=== PATIENT | male | born 1940 | race Caucasian/White ===

== ENCOUNTER → 2016-11-15 | Outpatient (CLI) | payer OTHER ==
[~2016-11-15] MED LIST: AMLO-110 PO; ATOR-22 PO; CHOL100010 PO
[2016-11-15 10:36] LABS: BASO % 0.2 %; BASO ABS # 0.01 K/uL (0-0.2); COMPLETE YES; HEMATOCRIT 43.2 % (42-52); IG% 0.2 %; LYMPH % 24.9 %; LYMPH ABS # 1.21 K/uL (1.2-3.4); MEAN CELL VOLUME 92.9 fL (80-100); MEAN CORPUSCULAR HEMOGLOBIN 31.2 pg (25-34); MEAN CORPUSCULAR HGB CONC 33.6 g/dl (32-36); MEAN PLATELET VOLUME 10.9 fL (7.4-10.4); MONO % 5.6 %; NEUT % 68.1 %; PLATELET COUNT 201 K/uL (130-400); RED BLOOD COUNT 4.65 M/uL (4.7-6.1); WHITE BLOOD COUNT 4.85 K/uL (4.8-10.8)
[2016-11-15 11:10] LABS: BLOOD UREA NITROGEN 26 mg/dl (7-18); BUN/CREATININE RATIO 18.9 (10-20); CALCIUM 8.7 mg/dl (8.5-10.1); CARBON DIOXIDE 31 mmol/L (21-32); CHLORIDE 106 mmol/L (98-107); GLUCOSE 162 mg/dl (70-99); SODIUM 141 mmol/L (136-145)
[2016-11-15 12:10] LABS: URINE APPEARANCE CLEAR (CLEAR); URINE BILIRUBIN NEG (NEG); URINE COLOR YELLOW; URINE EPITHELIAL CELL AUTO 0-5 /lpf (0-5); URINE NITRITE NEG (NEG); URINE PH 5.5 (4.5-7.5); URINE SPECIFIC GRAVITY 1.013 (1.000-1.030); UROBILINOGEN NEG (NEG)
[2016-11-15 12:12] LABS: MANUAL MICROSCOPIC REQUIRED? NO; REVIEW REQ? NO
[2016-11-15 12:25] LABS: ESTIMATED AVERAGE GLUCOSE 146 mg/dl; HA1C FLAG Normal (Normal)
[2016-11-15 13:27] LABS: URINE PROTIEN/CREAT RATIO 0.1 (0-0.2); URINE TOTAL PROTEIN 7.4 mg/dl (0-11.9)
--- NOTE | 2016-11-21 06:08 | CODING QUERY MEDICAL NECESSITY ---
SUPPORTING DIAGNOSIS NEEDED Dr. Lora, A supporting diagnosis is required for the test/procedure performed on this patient in order for us to be reimbursed by the patient's insurance. Please provide a supporting diagnosis for the following test/procedure listed below next to the test name along with your signature. *If there is no additional diagnosis for this patient that would support the following test/procedure please document that below next to the test/procedure. Test(s)/Procedure(s) that require a supporting diagnosis: * ([id number]) B12 VITAMIN LEVEL DIAGNOSIS: DATE OF SERVICE: 11/15/16 Provider Signature: Date: Thank you James Edwards [facility] Information Management Once completed, please kindly fax back to [phone] For questions please call [phone]
== END | disposition home or self-care (01) ==
LOC: C.LAB1850 09:51
PROVIDERS: ATTEND Internal Medicine Nephrology
DX: I12.9 Hypertensive chronic kidney disease with stage 1 through stage 4 chronic kidney disease, or unspecified chronic kidney disease (principal); C61 Malignant neoplasm of prostate; I25.10 Atherosclerotic heart disease of native coronary artery without angina pectoris; N18.3 Chronic kidney disease, stage 3 (moderate); E11.29 Type 2 diabetes mellitus with other diabetic kidney complication; D12.6 Benign neoplasm of colon, unspecified; G31.84 Mild cognitive impairment of uncertain or unknown etiology; E55.9 Vitamin D deficiency, unspecified; Z86.2 Personal history of diseases of the blood and blood-forming organs and certain disorders involving the immune mechanism

== ENCOUNTER → 2017-05-23 | Outpatient (CLI) | payer OTHER ==
[2017-05-23 12:23] LABS: BASO % 0.3 %; BASO ABS # 0.03 K/uL (0-0.2); COMPLETE YES; EOS % 0.9 %; HEMATOCRIT 41.3 % (42-52); IG% 0.2 %; LYMPH % 15.5 %; LYMPH ABS # 1.36 K/uL (1.2-3.4); MEAN CELL VOLUME 93.2 fL (80-100); MEAN CORPUSCULAR HEMOGLOBIN 31.2 pg (25-34); MEAN CORPUSCULAR HGB CONC 33.4 g/dl (32-36); MEAN PLATELET VOLUME 10.9 fL (7.4-10.4); MONO % 6.2 %; NEUT % 76.9 %; PLATELET COUNT 206 K/uL (130-400); RED BLOOD COUNT 4.43 M/uL (4.7-6.1); WHITE BLOOD COUNT 8.78 K/uL (4.8-10.8)
[2017-05-23 12:45] LABS: URINE APPEARANCE CLEAR (CLEAR); URINE BILIRUBIN NEG (NEG); URINE COLOR YELLOW; URINE EPITHELIAL CELL AUTO 0-5 /lpf (0-5); URINE NITRITE NEG (NEG); URINE PROTIEN/CREAT RATIO 0.1 (0-0.2); URINE SPECIFIC GRAVITY 1.019 (1.000-1.030); URINE TOTAL PROTEIN 11.8 mg/dl (0-11.9); UROBILINOGEN NEG (NEG)
[2017-05-23 12:47] LABS: ALT/SGPT 36 U/L (12-78); AST/SGOT 18 U/L (15-37); BLOOD UREA NITROGEN 15 mg/dl (7-18); BUN/CREATININE RATIO 9.9 (10-20); CALCIUM 8.7 mg/dl (8.5-10.1); CARBON DIOXIDE 31 mmol/L (21-32); CHLORIDE 104 mmol/L (98-107); CHOLESTEROL 85 mg/dl (0-200); CREATININE 1.52 mg/dl (0.60-1.40); GLUCOSE 196 mg/dl (70-99); POTASSIUM 3.7 mmol/L (3.5-5.1); SODIUM 140 mmol/L (136-145); TRIGLYCERIDES 110 mg/dl (0-150); VERY LOW DENSITY LIPOPROT CALC 22 mg/dl
[2017-05-23 12:48] LABS: MANUAL MICROSCOPIC REQUIRED? NO; REVIEW REQ? NO
[2017-05-23 12:57] LABS: ALKALINE PHOSPHATASE 112 U/L (45-117); CHOLESTEROL/HDL RATIO 1.7; HDL CHOLESTEROL 51 mg/dl; LDL CHOLESTEROL CALCULATED 12 mg/dl; PHOSPHORUS 2.9 mg/dl (2.5-4.9); PROSTATE SPECIFIC ANTIGEN 0.035 ng/ml (0.000-4.000)
[2017-05-23 13:04] LABS: ESTIMATED AVERAGE GLUCOSE 148 mg/dl; HA1C FLAG Normal (Normal)
== END | disposition home or self-care (01) ==
LOC: C.LAB1850 11:01
PROVIDERS: ATTEND Internal Medicine Nephrology
DX: I12.9 Hypertensive chronic kidney disease with stage 1 through stage 4 chronic kidney disease, or unspecified chronic kidney disease (principal); C61 Malignant neoplasm of prostate; N18.3 Chronic kidney disease, stage 3 (moderate); E11.29 Type 2 diabetes mellitus with other diabetic kidney complication; E55.9 Vitamin D deficiency, unspecified

== ENCOUNTER → 2017-11-13 | Outpatient (CLI) | payer OTHER ==
[2017-11-13 12:07] LABS: HEMOGLOBIN 14.2 g/dL (14.0-18.0); MEAN CELL VOLUME 91.3 fL (80-100); MEAN CORPUSCULAR HEMOGLOBIN 30.9 pg (25-34); MEAN CORPUSCULAR HGB CONC 33.8 g/dl (32-36); MEAN PLATELET VOLUME 10.6 fL (7.4-10.4); PLATELET COUNT 208 K/uL (130-400); RED CELL DISTRIBUTION WIDTH CV 13.1 % (11.5-14.5); RED CELL DISTRIBUTION WIDTH SD 43.9 fL (36.4-46.3); WHITE BLOOD COUNT 5.38 K/uL (4.8-10.8)
[2017-11-13 12:32] LABS: ALBUMIN 3.8 gm/dl (3.4-5.0); ALT/SGPT 37 U/L (12-78); AST/SGOT 22 U/L (15-37); BLOOD UREA NITROGEN 20 mg/dl (7-18); CALCIUM 8.5 mg/dl (8.5-10.1); CARBON DIOXIDE 30 mmol/L (21-32); CREATININE 1.53 mg/dl (0.60-1.40); GLUCOSE 148 mg/dl (70-99); POTASSIUM 3.9 mmol/L (3.5-5.1); SODIUM 139 mmol/L (136-145)
[2017-11-13 12:37] LABS: ALKALINE PHOSPHATASE 95 U/L (45-117); TOTAL PROTEIN 7.5 gm/dl (6.4-8.2)
[2017-11-13 12:42] LABS: HEMOGLOBIN A1C 6.9 % (4.5-5.6)
== END | disposition home or self-care (01) ==
LOC: C.LAB1850 11:06
PROVIDERS: ATTEND Internal Medicine Nephrology
DX: C61 Malignant neoplasm of prostate (principal); I12.9 Hypertensive chronic kidney disease with stage 1 through stage 4 chronic kidney disease, or unspecified chronic kidney disease; N18.3 Chronic kidney disease, stage 3 (moderate); E55.9 Vitamin D deficiency, unspecified; E11.9 Type 2 diabetes mellitus without complications

== ENCOUNTER 2018-12-04 17:30 | Inpatient (IN) ==
--- NOTE | 2018-12-04 18:15 | Emergency Department Note ---
History of Present Illness General Chief complaint: Bite Stated complaint: INSECT BITE, LEFT HAND SWELLING Time Seen by Provider: 12/04/18 17:38 History of Present Illness Maximum Pain Intensity: 5 This is a 78-year-old male that presents to the emergency department via private vehicle accompanied by his with complaints of "insect bite, left hand swelling". The patient notes that this past Sunday he was cleaning a grill and he believes that he got into spiders that may have bitten him. He believes they were possibly brown recluse. He states that Sunday night he began with swelling of the left medial wrist and notes that he was seen Sunday at 7 AM at a hospital in [place]. He had blood work drawn which he notes was normal and was given Keflex. He has taken 5 doses thus far and now the redness and swelling almost is to the elbow. He has no fevers but associated chills he notes. He also has diabetes. He denies any medication allergies. He has not missed any antibiotic doses. He is concerned because of how quickly the redness is spreading. Home Medications Home Medications Medication Instructions Recorded Confirmed Type ATORVASTATIN (LIPITOR) 20 mg PO QAM #0 tab 11/15/15 12/04/18 History Amlodipine (Norvasc) 5 mg PO QAM #0 tab 11/15/15 12/04/18 History CHOLECALCIFEROL (Vitamin D) 1,000 inter.unit PO QAM #0 tab 11/15/15 12/04/18 History glimepiride 0.5 mg PO QAM 12/04/18 12/04/18 History Allergies Allergy/AdvReac Type Severity Reaction Status Date / Time No Known Drug Allergies Allergy Unknown . 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 Required: No Beliefs That Will Affect Care: None Current Living Situation: Spouse Other Information That Helps Us Care for You: No Feels Safe at Home: Yes Safety Concerns: Feels Safe At This Time Smoking Status: Never smoker Hx Alcohol Use: No Hx Substance Use: No Review of Systems A total of 10 systems reviewed and were otherwise negative Physical Exam Vital Signs Vital Signs - 24 hr 12/04/18 17:33 12/04/18 19:14 12/04/18 20:23 Temperature 36.6 C Temperature Source Oral Sepsis Recent Fever Within 48 Hours No Sepsis New/Unexplained Change in Mental Status No Sepsis Action Taken by Nursing No Action Required Pulse Rate 71 Pulse Rate [Finger] 66 60 Pulse Rhythm [Finger] Regular Regular Pulse Strength [Finger] Normal Respiratory Rate 20 16 20 Respiratory Effort / Characteristics Non-Labored Spontaneous Non-Labored Spontaneous Respiratory Depth Normal Normal Respiratory Pattern Regular Blood Pressure 172/78 H Blood Pressure [Right Arm] 148/75 H 134/74 Blood Pressure Mean 109 Blood Pressure Mean [Right Arm] 99 94 Pulse Oximetry 96 96 96 Oxygen Delivery Method Room Air Room Air Room Air VITAL SIGNS - Vital signs and nursing notes were reviewed. Hypertensive, otherwise stable. GENERAL - 78-year-old male appearing his stated age who is in no acute distress. Communicates well with provider and answers questions appropriately. SKIN -the patient's left medial wrist is erythematous diffusely extending nearly to the left elbow on the ventral aspect. There is no fluctuance. It is tender to palpation and increased warmth is noted. HEAD - NC/AT. EYES - Sclera anicteric. EARS - No deformities of external structures noted on gross examination bilaterally. NOSE - Midline and without cyanosis. No epistaxis or purulent drainage noted. MOUTH/OROPHARYNX - Without perioral cyanosis. LUNGS - Chest wall symmetric without accessory muscle use, intercostals retractions, or central cyanosis. Normal vesicular breath sounds CTA B/L. No wheezes, rales, or rhonchi appreciated. CARDIAC - RRR with S1/S2. No murmur, rubs, or gallops appreciated. EXTREMITIES - No clubbing or peripheral cyanosis. No pretibial edema present. Skin as above. Full range of motion of the right and left hand/wrist noted. +5/5 strength noted in UE/LE bilaterally. NEUROLOGIC - Cranial nerves II through XII grossly intact. PSYCH - A&Ox3 and cooperates fully with examiner. Pt is very pleasant and interacts well with examiner. Course Administered Medications Sodium Chloride (Nss 1000ml) 1,000 mls @ 80 mls/hr IV .[id number] [id number] Stop: 01/03/19 21:34 Last Admin: 12/04/18 22:12 Dose: 80 mls/hr Documented by: [id number] Discontinued Medications Ceftriaxone Sodium (Rocephin) 1,000 mg in 50 mls @ 100 mls/hr IV NOW STA Stop: 12/04/18 19:47 Last Infusion: 12/04/18 20:19 Dose: 0 mls/hr Documented by: [id number] Admin: 12/04/18 19:49 Dose: 100 mls/hr Documented by: [id number] Vancomycin HCl 1,500 mg/ (Sodium Chloride) 530 mls @ 200 mls/hr IV NOW ONE; Protocol Stop: 12/04/18 21:56 Last Infusion: 12/04/18 23:29 Dose: 0 mls/hr Documented by: [id number] Admin: 12/04/18 20:21 Dose: 200 mls/hr Documented by: [id number] Medical Decision Making Laboratory Data Result diagrams: 12/04/18 17:56 12/04/18 17:56 Lab Results 12/04/18 12/04/18 Range/Units 17:56 17:56 WBC 8.66 (4.8-10.8) K/uL RBC 4.54 L (4.7-6.1) M/uL Hgb 14.3 (14.0-18.0) g/dL Hct 41.8 L (42-52) % MCV 92.1 (80-100) fL MCH 31.5 (25-34) pg MCHC 34.2 (32-36) g/dL RDW Std Deviation 45.2 (36.4-46.3) fL RDW Coeff of Kari 13.3 (11.5-14.5) % Plt Count 191 (130-400) K/uL MPV 11.1 H (7.4-10.4) fL Immature Gran % (Auto) 0.1 % Neut % (Auto) 71.2 % Lymph % (Auto) 19.2 % [place] % (Auto) 8.4 % Eos % (Auto) 0.9 % Baso % (Auto) 0.2 % Immature Gran # (Auto) 0.01 (0.00-0.02) K/uL Neut # (Auto) 6.16 (1.4-6.5) K/uL Lymph # (Auto) 1.66 (1.2-3.4) K/uL [place] # (Auto) 0.73 H (0.11-0.59) K/uL Eos # (Auto) 0.08 (0-0.5) K/uL Baso # (Auto) 0.02 (0-0.2) K/uL Sodium 142 (136-145) mmol/L Potassium 3.9 (3.5-5.1) mmol/L Chloride 109 H (98-107) mmol/L Carbon Dioxide 28 (21-32) mmol/L Anion Gap 5.0 (3-11) BUN 25 H (7-18) mg/dl Creatinine 1.52 H (0.6-1.4) mg/dl Est Cr Clr Drug Dosing 34.3 ml/min Est GFR ( Amer) 49.8 Est GFR (Non-Af Amer) 43.0 BUN/Creatinine Ratio 16.3 (10-20) Glucose 132 H (70-99) mg/dl Calcium 9.0 (8.5-10.1) mg/dl Total Bilirubin 0.6 (0.2-1) mg/dl AST 18 (15-37) U/L ALT 27 (12-78) U/L Alkaline Phosphatase 94 (45-117) U/L Total Protein 7.7 (6.4-8.2) gm/dl Albumin 3.8 (3.4-5.0) gm/dl Globulin 3.9 (2.5-4.0) gm/dl Albumin/Globulin Ratio 1.0 (0.9-2) MDM Narrative Patient was seen and evaluated as above in room D4. Review was performed of nursing notes and vital signs. After obtaining a thorough history and physical examination the above work up was performed. He presents to us today with left forearm erythema. This is consistent with likely cellulitis. Extends from the left wrist up into the left AC region. There is lymphangitic streaking at the AC region. He is afebrile nontoxic on exam. He is already had 5 doses of Keflex. Given his age, diabetic state, has already had 5 doses of antibiotics, rapid progression of the erythema I do believe that inpatient management is warranted. CBC reveals no leukocytosis or concerning anemia. Patient does have evidence of chronic kidney disease with creatinine of 1.52. Otherwise no evidence of liver failure. It was felt that the patient should be given antibiotics it would be appropriate for the likely skin infection. I did discuss this with the hospitalist, Dr. Keith. We agreed upon Rocephin and vancomycin. I did consult with our emergency department pharmacist regarding dosing for these medications as the patient has a creatinine of 1.52 with an estimated creatinine clearance for drug dosing of 34.3. It was felt that the vancomycin loading dose could be provided at 20 to 25 mg/kg and then could be adjusted with a trough accordingly. It was also noted that a gram of Rocephin could also be provided. These were ordered. Please refer to further documentation regarding the patient's stay. Case was discussed with the attending physician. I attest that I have personally reviewed the patient medication list. I attest that I have reviewed the patient's blood pressure and it was found to be elevated at time of presentation likely secondary to his presentation. GCS: 15 In the evaluation and treatment of this patient the following differential diagnoses were entertained: Localized skin reaction, allergic reaction, cellulitis, among others. Impression & Plan Cellulitis of forearm, left Discharge Plan Visit Data *Final* Discharge Date/Time: 12/04/18 21:26 Chief Complaint: Bite Stated Complaint: INSECT BITE, LEFT HAND SWELLING ED Provider: Wilmar Cheney ED Midlevel Provider: Dereck Patel Discharge Problem: Cellulitis of forearm, left Patient Disposition: Admitted As Inpatient Condition: Good Discharge Instructions Interventions: ED Discharge Assessment Last Done: 12/04/18 21:26
[2018-12-04 18:17] LABS: Basophils # (auto) 0.02 K/uL (0-0.2); Basophils % (auto) 0.2 %; Eosinophils # (auto) 0.08 K/uL (0-0.5); Eosinophils % (auto) 0.9 %; Hematocrit (blood only) 41.8 % (42-52); Hemoglobin 14.3 g/dL (14.0-18.0); Immature Granulocytes # (auto) 0.01 K/uL (0.00-0.02); Immature Granulocytes % (auto) 0.1 %; Lymphocytes # (auto) 1.66 K/uL (1.2-3.4); Lymphocytes % (auto) 19.2 %; Mean Corpuscular Hgb Conc 34.2 g/dL (32-36); Mean Corpuscular Volume 92.1 fL (80-100); Mean Platelet Volume 11.1 fL (7.4-10.4); Monocytes # (auto) 0.73 K/uL (0.11-0.59); Monocytes % (auto) 8.4 %; Neutrophils # (auto) 6.16 K/uL (1.4-6.5); Neutrophils % (auto) 71.2 %; Platelet Count 191 K/uL (130-400); RDW Coefficient of Variation 13.3 % (11.5-14.5); RDW Standard Deviation 45.2 fL (36.4-46.3); Red Blood Count 4.54 M/uL (4.7-6.1); White Blood Count 8.66 K/uL (4.8-10.8)
[2018-12-04 18:47] LABS: Albumin Level 3.8 gm/dl (3.4-5.0); BUN Creatinine Ratio 16.3 (10-20); Bilirubin,Total 0.6 mg/dl (0.2-1); Creatinine Clr Calc Pharmacy 34.3 ml/min; Est GFR (African American) 49.8; Globulin 3.9 gm/dl (2.5-4.0); Potassium 3.9 mmol/L (3.5-5.1); Total Protein 7.7 gm/dl (6.4-8.2)
--- NOTE | 2018-12-04 18:56 | Emergency Department Note ---
ED Visit Note I did evaluate and examine this patient myself. I did guide management for the patient. I agree with the PA's assessment as discussed. Please see the PAs dictation for further details. I did independently review the blood work. Patient has been on Keflex for 5 days without any improvement and worsening of his symptoms. He is not a [facility] candidate due to involvement of his hand. The case was discussed with the hospitalist for further management. .
[2018-12-04] MEDS ORDERED: VANCOMYCIN CONSULT ACTIVE PRN ×2 (19:18→21:35)
[2018-12-04] MEDS ORDERED: cefTRIAXone SODIUM 1,000 MG/50 ML BAG IV STA (19:18)
[2018-12-04] MEDS ORDERED: VANCOMYCIN HCL 1,500 MG in SODIUM CHLORIDE 0.9% 500 ML IV ONE (19:18)
--- NOTE | 2018-12-04 20:15 | History & Physical Report ---
Date of Service December 04, 2018 Assessment & Plan (1) Cellulitis: Redness and swelling of LUE with extension despite being on PO Keflex. Uncertain if this is truly a spider bite, no obvious bite site. Patient afebrile, hemodynamically stable, non-toxic in appearance. -Admit to medical floor -Ceftriaxone -Vancomycin -Monitor area of redness for progression Present on Admission?: Yes (2) Diabetes: Well controlled at home with diet and Glimepiride. BS today 132 -CC diet as tolerated -ISS Present on Admission?: Yes (3) CKD (chronic kidney disease): BUN and Cr near baseline. Electrolytes and metabolic profile acceptable. -Monitor BUN, Cr, electrolytes and UOP -Avoid nephrotoxic medications -Renal dosing where appropriate Present on Admission?: Yes (4) VIK on CPAP: Patient reports using CPAP at home intermittently. Discussed importance of compliance with CPAP qHS -CPAP per protocol F/E/N - NSS at 80mL/hr x 1 liter, monitor electrolytes and renal function, CC diet as tolerated Ppx - Ambulation, IVF, patient low risk for DVT Code - Full Dispo - Admit to medical floor History of Present Illness Chief Complaint: cellulitis Primary Care Provider: Briana Rico PA-C Mr. Castañeda is a pleasant 78yo male with history of DM, CKD presenting with cellulitis of the LUE. Patient was visiting family in [place] on 12/02/18 and was cleaning a [employer] grill at appx 15:00. He was removing some spider webs with his bare hands and states that he saw a brown recluse spider. He does not recall getting bitten but shortly after he developed redness and swelling of the left wrist. Redness, swelling and pain worsened. Patient was seen in the ER field aide on 12/03/18 and was diagnosed with cellulitis. He was given a prescription for Keflex. Has been taking as prescribed and has completed 5 doses. Patient presents today with worsening of redness and swelling. Redness has progressed from the wrist to approximately the mid-forearm over the last 12 hours. Per ER staff, redness has progressed since arrival. He denies fevers, chills, nausea, vomiting, myalgias, malaise. No additional complaints at this time. ER Course: Vancomycin, Ceftriaxone Allergies Allergy/AdvReac Type Severity Reaction Status Date / Time No Known Drug Allergies Allergy Unknown . Verified 12/04/18 19:46 Home Medications Home Medications Medication Instructions Recorded Confirmed Type ATORVASTATIN (LIPITOR) 20 mg PO QAM #0 tab 11/15/15 12/04/18 History Amlodipine (Norvasc) 5 mg PO QAM #0 tab 11/15/15 12/04/18 History CHOLECALCIFEROL (Vitamin D) 1,000 inter.unit PO QAM #0 tab 11/15/15 12/04/18 History glimepiride 0.5 mg PO QAM 12/04/18 12/04/18 History Past Med/Surg History Medical History Chronic kidney disease Diabetes VIK on CPAP Prostate cancer Surgical History Hx of colonoscopy S/P prostatectomy Family History Other Family history non-contributory Social History Feels Safe at Home: Yes Smoking Status: Former smoker Review of Systems Review of Systems: All systems reviewed & are unremarkable except as noted in HPI & below Physical Exam Physical Exam: General: patient resting comfortably, NAD, non-toxic in appearance, AA&O x 4 Skin: warm, dry, intact, no rashes or lesions HEENT: NC/AT, PERRL, EOMI, anicteric sclera, conjunctiva without injection, external ear normal to inspection and nontender, hearing aides in place, nares patent, moist mucus membranes, dentition intact, no oropharyngeal lesions, neck supple, trachea midline, no LAD, no thyromegaly, no JVD Heart: +S1/S2, regular, no m/r/g Lungs: equal air entry bilaterally, no rales/rhonchi/wheezes Abd: +BS, soft, NT/ND, no masses/organomegaly/ascites Ext: warm, 2+ pulses in UE/LE bilaterally, no clubbing/cyanosis or edema, warmth, redness, tenderness of LUE from wrist to mid forearm with some streaking into the upper arm. No fluctuance, bullae, crepitus or necrosis. No entry point or obvious bite or skin break Neuro: nonfocal, patient AA&O x 4, speech intact, no facial droop, moving all extremities on command with equal strength 5/5 Results & Data Vital Signs (Past 12 Hours) Vital Signs Temp Pulse Pulse Resp BP BP Pulse Ox 12/04/18 19:14 66 16 148/75 H 96 12/04/18 17:33 36.6 C 71 20 172/78 H 96 Laboratory Results Lab Results 12/04/18 12/04/18 Range/Units 17:56 17:56 WBC 8.66 (4.8-10.8) K/uL RBC 4.54 L (4.7-6.1) M/uL Hgb 14.3 (14.0-18.0) g/dL Hct 41.8 L (42-52) % MCV 92.1 (80-100) fL MCH 31.5 (25-34) pg MCHC 34.2 (32-36) g/dL RDW Std Deviation 45.2 (36.4-46.3) fL RDW Coeff of Kari 13.3 (11.5-14.5) % Plt Count 191 (130-400) K/uL MPV 11.1 H (7.4-10.4) fL Immature Gran % (Auto) 0.1 % Neut % (Auto) 71.2 % Lymph % (Auto) 19.2 % [place] % (Auto) 8.4 % Eos % (Auto) 0.9 % Baso % (Auto) 0.2 % Immature Gran # (Auto) 0.01 (0.00-0.02) K/uL Neut # (Auto) 6.16 (1.4-6.5) K/uL Lymph # (Auto) 1.66 (1.2-3.4) K/uL [place] # (Auto) 0.73 H (0.11-0.59) K/uL Eos # (Auto) 0.08 (0-0.5) K/uL Baso # (Auto) 0.02 (0-0.2) K/uL Sodium 142 (136-145) mmol/L Potassium 3.9 (3.5-5.1) mmol/L Chloride 109 H (98-107) mmol/L Carbon Dioxide 28 (21-32) mmol/L Anion Gap 5.0 (3-11) BUN 25 H (7-18) mg/dl Creatinine 1.52 H (0.6-1.4) mg/dl Est Cr Clr Drug Dosing 34.3 ml/min Est GFR ( Amer) 49.8 Est GFR (Non-Af Amer) 43.0 BUN/Creatinine Ratio 16.3 (10-20) Glucose 132 H (70-99) mg/dl Calcium 9.0 (8.5-10.1) mg/dl Total Bilirubin 0.6 (0.2-1) mg/dl AST 18 (15-37) U/L ALT 27 (12-78) U/L Alkaline Phosphatase 94 (45-117) U/L Total Protein 7.7 (6.4-8.2) gm/dl Albumin 3.8 (3.4-5.0) gm/dl Globulin 3.9 (2.5-4.0) gm/dl Albumin/Globulin Ratio 1.0 (0.9-2) Code Status & VTE Plan Code Status FULL VTE Prophylaxis Plan VTE Prophylaxis will be ordered: No Reason for no VTE drug order: Treatment not indicated (1) Cellulitis Site of cellulitis: extremity Site of cellulitis of extremity: upper extremity Laterality: left Qualified Code(s): L03.114 - Cellulitis of left upper limb (2) Diabetes Diabetes mellitus type: type 2 Diabetes mellitus terminal operations manager insulin use: without senior care use Diabetes mellitus complication status: without complication Qualified Code(s): E11.9 - Type 2 diabetes mellitus without complications (3) CKD (chronic kidney disease) Chronic kidney disease stage: unspecified stage Qualified Code(s): N18.9 - Chronic kidney disease, unspecified
[2018-12-04] MEDS ORDERED: CARBOHYDRATES FOR HYPOGLYCEMIA PO PRN (21:35)
[2018-12-04] MEDS ORDERED: GLUCOSE 40% GEL 15 GM TUBE PO PRN (21:35)
[2018-12-04] MEDS ORDERED: ONDANSETRON INJ 2 MG/ML 2 ML VIAL IV PRN (21:35)
[2018-12-04] MEDS ORDERED: GLUCAGON FOR INJ 1 MG VIAL SQ PRN (21:35)
[2018-12-04] MEDS ORDERED: GLUCOSE 10 TABS/TUBE PO PRN (21:35)
[2018-12-04] MEDS ORDERED: DEXTROSE 50% 50 ML SYRINGE IV PRN (21:35)
[2018-12-04] MEDS ORDERED: ACETAMINOPHEN 325 MG TAB PO PRN (21:35)
[2018-12-04] MEDS: SODIUM CHLORIDE 0.9% 1000ML 1,000 ML IV SCH (22:12)
[2018-12-05 05:30] LABS: Basophils # (auto) 0.02 K/uL (0-0.2); Basophils % (auto) 0.3 %; Eosinophils # (auto) 0.09 K/uL (0-0.5); Eosinophils % (auto) 1.3 %; Hematocrit (blood only) 36.7 % (42-52); Hemoglobin 12.7 g/dL (14.0-18.0); Immature Granulocytes # (auto) 0.01 K/uL (0.00-0.02); Immature Granulocytes % (auto) 0.1 %; Lymphocytes # (auto) 1.38 K/uL (1.2-3.4); Lymphocytes % (auto) 20.6 %; Mean Corpuscular Hgb Conc 34.6 g/dL (32-36); Mean Corpuscular Volume 90.8 fL (80-100); Mean Platelet Volume 10.7 fL (7.4-10.4); Monocytes # (auto) 0.82 K/uL (0.11-0.59); Monocytes % (auto) 12.2 %; Neutrophils # (auto) 4.39 K/uL (1.4-6.5); Neutrophils % (auto) 65.5 %; Platelet Count 169 K/uL (130-400); RDW Coefficient of Variation 13.3 % (11.5-14.5); RDW Standard Deviation 44.6 fL (36.4-46.3); Red Blood Count 4.04 M/uL (4.7-6.1); White Blood Count 6.71 K/uL (4.8-10.8)
[2018-12-05 05:56] LABS: BUN Creatinine Ratio 16.6 (10-20); Calcium 8.1 mg/dl (8.5-10.1); Creatinine Clr Calc Pharmacy 41.7 ml/min; Est GFR (African American) 63.1; Est GFR (Non-African American) 54.4; Potassium 3.7 mmol/L (3.5-5.1)
[2018-12-05] MEDS: AMLODIPINE BESYLATE 5 MG TAB PO SCH (08:41)
[2018-12-05] MEDS: ATORVASTATIN 20 MG TAB PO SCH (08:42)
[2018-12-05] MEDS: INSULIN ASPART 100 UNITS/ML 3 ML PEN SC SCH ×4 (08:45→21:12)
[2018-12-05] MEDS: SODIUM CHLORIDE 0.9% 1000ML 1,000 ML IV SCH (10:35)
[2018-12-05] MEDS ORDERED: DIPHTHERIA/TETANUS/PERTUSSIS 0.5 ML SYR/VIAL IM ONE (11:12)
[2018-12-05] MEDS: CHOLECALCIFEROL 1,000 UNITS TAB PO SCH (11:43)
--- NOTE | 2018-12-05 14:00 | Pharmacy Report ---
Pharmacy Abx Initial Consult - Date of Service December 05, 2018 - Pharmacy Dosing Scope Date of Consult: 12/04/18 Consultation requested by: Dr. Donaldo Keith Pharmacy is consulted to initiate Vancomycin IV dosing therapy, order appropriate labs and adjust drug dose/frequency. - Subjective The patient is a 78 year old M admitted on 12/04/18 20:27. - Objective Height: 5 ft 5 in Weight: 71.1 kg Vital Signs (Past 12hrs): Vital Signs Temp Pulse Resp BP Pulse Ox 12/05/18 07:00 36.8 C 54 L 20 127/61 95 Lab Results (24hrs): Laboratory Tests (24 Hours) 12/05/18 12/05/18 12/04/18 05:20 05:20 17:56 WBC 6.71 Neut # (Auto) 4.39 Creatinine 1.25 1.52 H Est Cr Clr Drug Dosing 41.7 34.3 12/04/18 17:56 WBC 8.66 Neut # (Auto) 6.16 Creatinine Est Cr Clr Drug Dosing Micro Results: 12/04/18 18:02 Aerobic Blood Culture - Pending Blood Anaerobic Blood Culture - Pending 12/04/18 17:56 Aerobic Blood Culture - Pending Blood Anaerobic Blood Culture - Pending - Assessment & Plan Assessment 78 year old M admitted for redness and swelling of his L hand possibly from a spider bite. 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 Pharmacy consulted to dose Vancomycin for L hand cellulitis. Plan Vancomycin for treatment of L hand Cellulitis. Vancomycin IV * Estimated PK Parameters: Vd 0.7 L/kg, Alex 0.033 hr-1, t1/2 21 hr * Loading dose: 1500 mg (21 mg/kg) x 1 dose given in ED yesterday ~ 1999. * Maintenance dose: 1250 mg IV (17.5 mg/kg) every 24 hours ordered to start today at 6 pm. * Goal trough level for Cellulitis: 12 to 20 mcg/mL * Will order a trough Vanco level prior to the 3rd maintenance dose on 12/07 if therapy does not get changed tomorrow. * Patient is also on Rocephin 1 gm IV q24h. Pharmacy will continue to follow and will adjust dose/frequency as necessary. Thank you.
--- NOTE | 2018-12-05 15:46 | Family Medicine Progress Note ---
Date of Service December 05, 2018 Assessment & Plan (1) Cellulitis: Cellulitis L forearm -Redness and swelling still present however reports from both staff and patient that this is drastically improved. Uncertain if this is truly a spider bite, no obvious bite site. -Failed outpatient therapy of PO keflex. Patient afebrile, hemodynamically stable, non-toxic in appearance. -Ceftriaxone and Vancomycin IV at least another 24 hours; can convert to bactrim or doxy on discharge -Monitor area of redness for progression. Is delineated with surgical pen. Diabetes -Well controlled at home with diet and Glimepiride. BS well controlled -CC diet as tolerated -ISS CKD, Stage III -BUN and Cr near or below baseline. Electrolytes and metabolic profile acceptable. -Monitor BUN, Cr, electrolytes and UOP -Avoid nephrotoxic medications -Renal dosing where appropriate VIK on CPAP -Patient reports using CPAP at home intermittently. Reiterated importance of compliance with CPAP qHS -CPAP per protocol F/E/N - monitor electrolytes and renal function, CC diet as tolerated Ppx - Ambulation, IVF, patient low risk for DVT Code - Full Dispo - Admit to medical floor, return to home soon (2) Diabetes: (3) CKD (chronic kidney disease): (4) VIK on CPAP: Supervising Physician Co-Signing Physician Notes I saw the patient with the resident physician and confirmed donald portions of history and physical exam. I agree with the impression and plan as noted above. The patient notes significant improvement especially in terms of edema and discomfort. Upon examination the erythema is still right up to the marked line from admission. CBC is unremarkable BMP shows improved creatinine, 1.52 last evening to 1.25 this morning. Cellulitis He failed outpatient therapy with Keflex but had significant improvement post addition of vancomycin Continue same and reassess in a.m. CKD 3 BMP in AM As noted above Subjective Patient in good spirits this morning. Is very pleased by results. Eager to go home but understanding and willing to adequately treat infection. Review of Systems Review of Systems: All systems reviewed & are unremarkable except as noted in HPI & below Constitutional: no fever and no chills Respiratory: no cough and no dyspnea Cardiovascular: no chest pain Gastrointestinal: no abdominal pain Musculoskeletal: + problem reported (discomfort when moving LUE, sqeezing fist, etc--but improving) Integumentary: + problem reported (redness, warmth to LUE) Physical Exam Constitutional: WD/WN, vitals as above Eyes: PERRL, conjunctivae normal, anicteric sclerae ENMT: external ear and nose normal, oropharynx normal Neck: normal visual inspection Respiratory: normal respiratory effort, lungs clear to auscultation Cardiovascular: RRR, no murmur, no edema Gastrointestinal (Abdomen): normal bowel sounds, soft, nontender, no hepatosplenomegaly Musculoskeletal: Extremities: + elbow/forearm abnormality (swelling, erythema, warmth to L forearm) Left; + extremities abnormal to inspection Shoulder: + skin erythema Skin: + lesion (Cellulitic region on L forearm as above) Neurologic: PERRL, EOMI, accommodation nl, no face palsy, no dysarthria Psychiatric: A+Ox3, euthymic affect Results & Data Vital Signs (Past 12 Hours) Vital Signs Temp Pulse Resp BP Pulse Ox 12/05/18 14:59 36.3 C L 52 L 16 129/61 97 12/05/18 07:00 36.8 C 54 L 20 127/61 95 Laboratory Results 12/05/18 12/05/18 12/05/18 Range/Units 11:44 07:48 05:20 WBC (4.8-10.8) K/uL RBC (4.7-6.1) M/uL Hgb (14.0-18.0) g/dL Hct (42-52) % MCV (80-100) fL MCH (25-34) pg MCHC (32-36) g/dL RDW Std Deviation (36.4-46.3) fL RDW Coeff of Kari (11.5-14.5) % Plt Count (130-400) K/uL MPV (7.4-10.4) fL Immature Gran % (Auto) % Neut % (Auto) % Lymph % (Auto) % [place] % (Auto) % Eos % (Auto) % Baso % (Auto) % Immature Gran # (Auto) (0.00-0.02) K/uL Neut # (Auto) (1.4-6.5) K/uL Lymph # (Auto) (1.2-3.4) K/uL [place] # (Auto) (0.11-0.59) K/uL Eos # (Auto) (0-0.5) K/uL Baso # (Auto) (0-0.2) K/uL Sodium 143 (136-145) mmol/L Potassium 3.7 (3.5-5.1) mmol/L Chloride 112 H (98-107) mmol/L Carbon Dioxide 26 (21-32) mmol/L Anion Gap 5.0 (3-11) BUN 21 H (7-18) mg/dl Creatinine 1.25 (0.6-1.4) mg/dl Est Cr Clr Drug Dosing 41.7 ml/min Est GFR ( Amer) 63.1 Est GFR (Non-Af Amer) 54.4 BUN/Creatinine Ratio 16.6 (10-20) Glucose 99 (70-99) mg/dl POC Glucose 112 H 93 (70-99) Calcium 8.1 L (8.5-10.1) mg/dl Total Bilirubin (0.2-1) mg/dl AST (15-37) U/L ALT (12-78) U/L Alkaline Phosphatase (45-117) U/L Total Protein (6.4-8.2) gm/dl Albumin (3.4-5.0) gm/dl Globulin (2.5-4.0) gm/dl Albumin/Globulin Ratio (0.9-2) 12/05/18 12/04/18 12/04/18 Range/Units 05:20 21:51 17:56 WBC 6.71 (4.8-10.8) K/uL RBC 4.04 L (4.7-6.1) M/uL Hgb 12.7 L (14.0-18.0) g/dL Hct 36.7 L (42-52) % MCV 90.8 (80-100) fL MCH 31.4 (25-34) pg MCHC 34.6 (32-36) g/dL RDW Std Deviation 44.6 (36.4-46.3) fL RDW Coeff of Kari 13.3 (11.5-14.5) % Plt Count 169 (130-400) K/uL MPV 10.7 H (7.4-10.4) fL Immature Gran % (Auto) 0.1 % Neut % (Auto) 65.5 % Lymph % (Auto) 20.6 % [place] % (Auto) 12.2 % Eos % (Auto) 1.3 % Baso % (Auto) 0.3 % Immature Gran # (Auto) 0.01 (0.00-0.02) K/uL Neut # (Auto) 4.39 (1.4-6.5) K/uL Lymph # (Auto) 1.38 (1.2-3.4) K/uL [place] # (Auto) 0.82 H (0.11-0.59) K/uL Eos # (Auto) 0.09 (0-0.5) K/uL Baso # (Auto) 0.02 (0-0.2) K/uL Sodium 142 (136-145) mmol/L Potassium 3.9 (3.5-5.1) mmol/L Chloride 109 H (98-107) mmol/L Carbon Dioxide 28 (21-32) mmol/L Anion Gap 5.0 (3-11) BUN 25 H (7-18) mg/dl Creatinine 1.52 H (0.6-1.4) mg/dl Est Cr Clr Drug Dosing 34.3 ml/min Est GFR ( Amer) 49.8 Est GFR (Non-Af Amer) 43.0 BUN/Creatinine Ratio 16.3 (10-20) Glucose 132 H (70-99) mg/dl POC Glucose 89 (70-99) Calcium 9.0 (8.5-10.1) mg/dl Total Bilirubin 0.6 (0.2-1) mg/dl AST 18 (15-37) U/L ALT 27 (12-78) U/L Alkaline Phosphatase 94 (45-117) U/L Total Protein 7.7 (6.4-8.2) gm/dl Albumin 3.8 (3.4-5.0) gm/dl Globulin 3.9 (2.5-4.0) gm/dl Albumin/Globulin Ratio 1.0 (0.9-2) 12/04/18 Range/Units 17:56 WBC 8.66 (4.8-10.8) K/uL RBC 4.54 L (4.7-6.1) M/uL Hgb 14.3 (14.0-18.0) g/dL Hct 41.8 L (42-52) % MCV 92.1 (80-100) fL MCH 31.5 (25-34) pg MCHC 34.2 (32-36) g/dL RDW Std Deviation 45.2 (36.4-46.3) fL RDW Coeff of Kari 13.3 (11.5-14.5) % Plt Count 191 (130-400) K/uL MPV 11.1 H (7.4-10.4) fL Immature Gran % (Auto) 0.1 % Neut % (Auto) 71.2 % Lymph % (Auto) 19.2 % [place] % (Auto) 8.4 % Eos % (Auto) 0.9 % Baso % (Auto) 0.2 % Immature Gran # (Auto) 0.01 (0.00-0.02) K/uL Neut # (Auto) 6.16 (1.4-6.5) K/uL Lymph # (Auto) 1.66 (1.2-3.4) K/uL [place] # (Auto) 0.73 H (0.11-0.59) K/uL Eos # (Auto) 0.08 (0-0.5) K/uL Baso # (Auto) 0.02 (0-0.2) K/uL Sodium (136-145) mmol/L Potassium (3.5-5.1) mmol/L Chloride (98-107) mmol/L Carbon Dioxide (21-32) mmol/L Anion Gap (3-11) BUN (7-18) mg/dl Creatinine (0.6-1.4) mg/dl Est Cr Clr Drug Dosing ml/min Est GFR ( Amer) Est GFR (Non-Af Amer) BUN/Creatinine Ratio (10-20) Glucose (70-99) mg/dl POC Glucose (70-99) Calcium (8.5-10.1) mg/dl Total Bilirubin (0.2-1) mg/dl AST (15-37) U/L ALT (12-78) U/L Alkaline Phosphatase (45-117) U/L Total Protein (6.4-8.2) gm/dl Albumin (3.4-5.0) gm/dl Globulin (2.5-4.0) gm/dl Albumin/Globulin Ratio (0.9-2) Medications Administered Current Inpatient Medications Acetaminophen (Tylenol) 650 mg PO Q4H PRN PRN Reason: pain/fever Stop: 01/03/19 21:34 Amlodipine Besylate (Norvasc) 5 mg PO QAM ASHANTI Stop: 01/04/19 08:59 Last Admin: 12/05/18 08:41 Dose: 5 mg Documented by: Atorvastatin Calcium (Lipitor) 20 mg PO QAM ASHANTI Stop: 01/04/19 08:59 Last Admin: 12/05/18 08:42 Dose: 20 mg Documented by: Dextrose (Dextrose 50%) 25 - 50 ml IV UD PRN; Protocol PRN Reason: Hypoglycemia Protocol Stop: 01/03/19 21:34 Glucagon (Glucagen) 1 mg SQ UD PRN; Protocol PRN Reason: Hypoglycemia Protocol Stop: 01/03/19 21:34 Glucose (Dex4 Glucose) 4 - 8 tabs PO UD PRN; Protocol PRN Reason: Hypoglycemia Protocol Stop: 01/03/19 21:34 Glucose (Glucose 40%) 15 - 30 gm PO UD PRN; Protocol PRN Reason: Hypoglycemia Protocol Stop: 01/03/19 21:34 Ceftriaxone Sodium 1,000 mg/ (Dextrose) 50 mls @ 100 mls/hr IV Q24H ASHANTI; Protocol Stop: 12/14/18 19:59 Vancomycin HCl 1,250 mg/ (Sodium Chloride) 275 mls @ 125 mls/hr IV Q24H ASAHNTI; Protocol Stop: 12/14/18 17:59 Insulin Aspart (Novolog Flexpen) 0 units SC ACHS [facility] Stop: 01/04/19 07:29 Last Admin: 12/05/18 13:48 Dose: Not Given Documented by: Miscellaneous (Carbohydrates For Hypoglycemia) 15 - 30 gm PO UD PRN PRN Reason: Hypoglycemia Treatment Stop: 01/03/19 21:34 Miscellaneous Information (Consult) 1 ea N/A UD PRN PRN Reason: Consult Stop: 01/03/19 21:34 Ondansetron HCl (Zofran) 4 mg IV Q6H PRN PRN Reason: Nausea Stop: 01/03/19 21:34 Vitamin D (Vitamin D3) 1,000 units PO QAM [facility] Stop: 01/04/19 10:29 Last Admin: 12/05/18 11:43 Dose: 1,000 units Documented by: Resident Activity Tracking Resident Involvement: Resident Care Provided Care Provided: Adult Hospital Medicine (1) Diabetes Diabetes mellitus complication status: without complication Diabetes mellitus long term care administrator insulin use: without long term care administrator use Diabetes mellitus type: type 2 Qualified Code(s): E11.9 - Type 2 diabetes mellitus without complications (2) Cellulitis Laterality: left Site of cellulitis: extremity Site of cellulitis of extremity: upper extremity Qualified Code(s): L03.114 - Cellulitis of left upper limb (3) CKD (chronic kidney disease) Chronic kidney disease stage: unspecified stage Qualified Code(s): N18.9 - Chronic kidney disease, unspecified
[2018-12-05] MEDS ORDERED: VANCOMYCIN HCL 1,250 MG in SODIUM CHLORIDE 0.9% 250 ML IV SCH (18:00)
[2018-12-05] MEDS ORDERED: cefTRIAXone SODIUM 1,000 MG in DEXTROSE 5% 50 ML IV SCH (20:00)
[2018-12-06 06:44] LABS: Basophils # (auto) 0.04 K/uL (0-0.2); Basophils % (auto) 0.5 %; Eosinophils # (auto) 0.14 K/uL (0-0.5); Eosinophils % (auto) 1.8 %; Hematocrit (blood only) 38.5 % (42-52); Hemoglobin 13.6 g/dL (14.0-18.0); Immature Granulocytes # (auto) 0.01 K/uL (0.00-0.02); Immature Granulocytes % (auto) 0.1 %; Lymphocytes # (auto) 1.61 K/uL (1.2-3.4); Lymphocytes % (auto) 20.5 %; Mean Corpuscular Hgb Conc 35.3 g/dL (32-36); Mean Corpuscular Volume 89.5 fL (80-100); Mean Platelet Volume 10.7 fL (7.4-10.4); Monocytes # (auto) 0.86 K/uL (0.11-0.59); Neutrophils # (auto) 5.19 K/uL (1.4-6.5); Neutrophils % (auto) 66.1 %; Platelet Count 191 K/uL (130-400); RDW Coefficient of Variation 13.3 % (11.5-14.5); RDW Standard Deviation 43.5 fL (36.4-46.3); White Blood Count 7.85 K/uL (4.8-10.8)
[2018-12-06 07:19] LABS: BUN Creatinine Ratio 18.1 (10-20); Calcium 8.8 mg/dl (8.5-10.1); Creatinine Clr Calc Pharmacy 35.7 ml/min; Est GFR (African American) 52.3; Est GFR (Non-African American) 45.1; Potassium 3.9 mmol/L (3.5-5.1)
[2018-12-06] MEDS: ATORVASTATIN 20 MG TAB PO SCH (08:34)
[2018-12-06] MEDS: AMLODIPINE BESYLATE 5 MG TAB PO SCH (08:34)
[2018-12-06] MEDS: CHOLECALCIFEROL 1,000 UNITS TAB PO SCH (08:34)
--- NOTE | 2018-12-06 11:35 | Discharge Summary ---
Date of Service December 06, 2018 Admission HPI Per Admitting Provider Mr. Castañeda is a pleasant 78yo male with history of DM, CKD presenting with cellulitis of the LUE. Patient was visiting family in [place] on 12/02/18 and was cleaning a [employer] grill at appx 15:00. He was removing some spider webs with his bare hands and states that he saw a brown recluse spider. He does not recall getting bitten but shortly after he developed redness and swelling of the left wrist. Redness, swelling and pain worsened. 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 He was given a prescription for Keflex. Has been taking as prescribed and has completed 5 doses. Patient presents today with worsening of redness and swelling. Redness has progressed from the wrist to approximately the mid-forearm over the last 12 hours. Per ER staff, redness has progressed since arrival. He denies fevers, chills, nausea, vomiting, myalgias, malaise. No additional complaints at this time. ER Course: Vancomycin, Ceftriaxone Principal Diagnosis Cellulitis Discharge Exam Constitutional WD/WN, vitals as above Eyes PERRL, conjunctivae normal, anicteric sclerae ENMT external ear and nose normal, oropharynx normal Neck normal visual inspection Respiratory normal respiratory effort, lungs clear to auscultation Cardiovascular RRR, no murmur, no edema Gastrointestinal (Abdomen) normal bowel sounds, soft, nontender, no hepatosplenomegaly Musculoskeletal Extremities: + elbow/forearm abnormality (swelling, erythema greatly improved, some warmth to L forearm); + extremities abnormal to inspection Shoulder: + skin erythema Skin + lesion (Cellulitic region on L forearm as above) Neurologic PERRL, EOMI, accommodation nl, no face palsy, no dysarthria Psychiatric A+Ox3, euthymic affect Discharge Data Allergies Allergy/AdvReac Type Severity Reaction Status Date / Time No Known Drug Allergies Allergy Unknown . Verified 12/04/18 19:46 Consultations 12/04/18 19:19 ED Decision to Admit Stat Hospital Course (1) Cellulitis: Cellulitis L forearm -Redness and swelling greatly improved after 48 hours IV abx. Minimal amount of warmth still present. -Uncertain if this is truly a spider bite, no obvious bite site, however does have small "bump" on wrist. No ulcerating or open lesions. -Failed outpatient therapy of PO keflex. Patient afebrile, hemodynamically stable, non-toxic in appearance. -Ceftriaxone and Vancomycin IV given x 48 hours; Will discharge on doxycycline BID x 8 days -Monitor area as outpatient; recommend he see PCP early next week. Diabetes -Well controlled at home with diet and Glimepiride. BS well controlled CKD -BUN and Cr near or below baseline. Electrolytes and metabolic profile acceptable. -Avoided nephrotoxic medications VIK on CPAP -Patient reports using CPAP at home intermittently. Reiterated importance of compliance with CPAP qHS Code - Full (2) Diabetes: (3) CKD (chronic kidney disease): (4) VIK on CPAP: Total Time Total Time Spent Total Time Spent (In Minutes): 30 Discharge Plan Discharge Items Patient Disposition: Home - Self-Care Reason For Visit: CELLULITIS Discharge Diagnosis: Cellulitis Condition: Good Discharge Goals: Decrease discomfort, Improve disease control and Therapeutic intervention Activity: Per 'Additional Instructions' section Non-emergency contact: Primary Care Provider Call non-emergency contact if: you have any medication questions, your symptoms worsen, you have a fever, your wound has increased redness and your wound pain has increased Follow-up/Referrals: Briana Rico PA-C [Primary Care Provider] - Diet: Carb Consistent or DM2 Addtl Provider Instructions: During this visit you were evaluated for cellulitis of your L forearm. This has drastically improved with IV antibiotics, which is great news. This likely means, however, that the keflex antibiotic you had been started on was not effective enough to treat the infection. You will be sent home on a different antibiotic, Doxycycline. Please take this as prescribed and finish the full course. You will take one tablet tonight, then twice daily after that. If your arm becomes more red, warm, or painful, please do not hesitate to return to the ER. We recommend you follow up with your PCP early next week to ensure the infection is improving. Prescriptions: New doxycycline hyclate 100 mg tablet 100 mg PO BID 8 Days Qty: 16 RF: 0 Continued ATORVASTATIN (LIPITOR) 20 MG tablet 20 mg PO QAM Qty: 0 RF: 0 Amlodipine (Norvasc) 5 MG tablet 5 mg PO QAM Qty: 0 RF: 0 CHOLECALCIFEROL (Vitamin D) 1,000 INTER.UNIT tablet 1,000 inter.unit PO QAM Qty: 0 RF: 0 glimepiride 1 mg tablet 0.5 mg PO QAM RF: 0 Stand-Alone Forms: My [facility] Discharge Orders: Discharge Order (Routine); Ordered 12/06/18 Ordered By: Sharita Garcia Admission Data Admit Date/Time: 12/04/18 20:27 Attending Provider: Don Leblanc Admit Provider: Yazmin Keith Primary Care Provider: Briana Rico Other Providers: Yazmin Keith Service: Medical Other Interventions: Discharge Summary Assessment (RN) Last Done: 12/06/18 11:43 DC Date/Time DO NOT enter until pt leaves facility: 12/06/18 13:26 Supervising Physician Co-Signing Physician Notes Patient seen and examined with Dr. Garcia. Agree with history, exam findings, assessment and plan of care as outlined. In brief, Mr. Castañeda is a very pleasant 78 year old male admitted with left forearm cellulitis after failing outpatient keflex. He has been on vancomycin since admission and has had significant improvement in the area of cellulitis on the forearm. Today, there is very faint erythema. The area is nontender to the touch. AFebrile and no leukocytosis. He will be discharged on doxycycline to complete a 10 day course of antibiotics. I personally spent 25 minutes discharge planning for this patient. Resident Activity Tracking Resident Involvement: Resident Care Provided Care Provided: Adult Hospital Medicine
== END 2018-12-06 13:26 | disposition home or self-care (01) | DRG 603 ==
LOC: ED 17:30 → 4E 20:27 → SUATTDRO 20:27 → 4E 21:26